=== PATIENT | male | born 1955 | race Caucasian/White ===

== ENCOUNTER → 2016-07-26 | Outpatient (CLI) | payer MEDICAID, MEDICARE, OTHER ==
[~2016-07-26] VITALS: Ht 172.7 cm; Wt 148.8 kg
[~2016-07-26] MED LIST: ?ANTIBIOTIC; AC500T PO; ACET-461 PO; ALB.5NB20 HHN; ALBU2.5V4 INH; AML5T PO; AMLO10TA82 PO; ASPI-84 PO; AZIT-21 PO; BUDE10.2 IH; BUDE6HFA IH; CALC500T24 PO; CLC500CT PO; CLOT15CR4 TP; CPH250CIP PO; CYCL10TA9 PO; CYMBALTA; DOXY100C2 PO; DULO60CA58 PO; DULO60CA6 PO; ENAL10TA PO; ENLP10T PO; FESO8TAB PO; FLUT16SP22 NS; FLUT1DIS26 IH; FURO20TA4 PO; GABA600T2 PO; GBPN300C PO; GENT5DRO3 OD; HCT25T PO; HYDR1TAB PO; ISOS30TA3 PO; ISOS30TA7 PO; ISOSORBIDE; LISI10TA2 PO; LISI1TAB10 PO; LOPE2CAP PO; MELO-198 PO; MELO7.5T PO; METF500T8 PO; METO25TA PO; NEBU1EAC2 MC; NF-ESOM40C PO; NF-OLOP5ML OP; NITR0.4T12 SL; NORT25CA PO; NRT25C PO; NTR.4SL SL; POTA20TA15 PO; PRD10T PO; PRD20T PO; PRED10TA PO; PRM25T PO; QUET50TA21 PO; RANEXA 500MG PO; RANO10003 PO; REGADENOSON 0.4 MG/5 ML SYR (LEXISCAN) IV ONE; ROSU10TA PO; RT-ALBUINH IH; RT-SYMBINH IH; SIME125C PO; SIMV20TA3 PO; SIMV40TA4 PO; SMV20T PO; SULF1TAB38 PO; TAMS0.4C2 PO; TIOT4MIS2 IH; TMSL.4C PO; TRAM50TA2 PO; TRM50T PO; VENL150T4 PO; VNL75CCR PO; [UNRECOGNIZED DRUG - CODE] TP
[2016-07-26] MEDS: CATHETER FLUSH 10 ML SYR IV PRN ×2 (08:13→09:46)
[2016-07-26 09:44] VITALS: BP 130/99
--- NOTE | 2016-07-27 10:04 | STRESS TEST ---
PROCEDURE PHYSICIAN: CONNIE MOISE DATE OF PROCEDURE: 07/26/2016 LEXISCAN MYOVIEW STRESS TEST REPORT: REFERRING PHYSICIAN: Dr. Burrows. INDICATION FOR THE PROCEDURE: 1. Chest pain. 2. Coronary artery disease. BASELINE HEART RATE: 78 BASELINE BLOOD PRESSURE: 143/98 BASELINE EKG: Sinus rhythm with no ischemic changes. IN SUMMARY: The patient was injected with 10.5 mCi of technetium 99 Myoview and the resting images were obtained. Then the patient received 0.4 mg of Lexiscan followed by 29 mCi of technetium 99 Myoview. Throughout the test, there were no EKG changes, occasional APCs were noted. The resting and stress images were reviewed and compared in the short axis, horizontal long axis, and vertical long axis views. Review of the images showed good radiotracer uptake with no ischemia or infarction on SPECT images. SSS is 0. TID value 1.04. On the gated images, the left ventricle appeared to be normal size with normal contractility. Calculated ejection fraction 55%. IN CONCLUSION: 1. The patient tolerated Lexiscan well. 2. No ischemia or infarction on SPECT images. 3. Normal left ventricular size with normal contractility. Calculated ejection fraction 55%. Job ID: [id number] Dictated Date: 07/27/2016 07:11:36 [employer] Operator Date: 07/27/2016 10:01:12 / shila
== END ==
LOC: CARD 07:54
PROVIDERS: ATTEND Internal Medicine Cardiovascular Disease
DX: I25.10 Atherosclerotic heart disease of native coronary artery without angina pectoris (principal); R07.89 Other chest pain; I10 Essential (primary) hypertension; Z72.0 Tobacco use
CPT/HCPCS: 78452; 93017